=== PATIENT | male | born 1980 | race Caucasian/White ===

== ENCOUNTER 2018-04-11 19:19 | Inpatient (IN) | payer OTHER ==
[~2018-04-11] VITALS: Ht 190.5 cm; Wt 89.4 kg
[2018-04-11] MEDS ORDERED: CIPRO500 MG/5 M (20:23)
[2018-04-11] MEDS ORDERED: OXYCODON-ACETA1 EACH (20:23)
== END 2018-04-15 19:43 | disposition left against medical advice (07) | DRG 815 ==
LOC: ER 19:19 → MEDI 04-12 14:37
PROC: 3E0F7GC Introduction of Other Therapeutic Substance into Respiratory Tract, Via Natural or Artificial Opening (ICD-10-PCS; 2018-04-12)
PROC: BB24ZZZ Computerized Tomography (CT Scan) of Bilateral Lungs (ICD-10-PCS; 2018-04-13)
PROC: BV44ZZZ Ultrasonography of Scrotum (ICD-10-PCS; 2018-04-13)
PROC: 0WBH3ZX Excision of Retroperitoneum, Percutaneous Approach, Diagnostic (ICD-10-PCS; principal; 2018-04-14)
PROC: B030YZZ Magnetic Resonance Imaging (MRI) of Brain using Other Contrast (ICD-10-PCS; 2018-04-15)
DX: L04.8 Acute lymphadenitis of other sites (principal); J90 Pleural effusion, not elsewhere classified; I10 Essential (primary) hypertension; F17.210 Nicotine dependence, cigarettes, uncomplicated
CPT/HCPCS: 70552